=== PATIENT | female | born 1940 | race Caucasian/White ===

== ENCOUNTER 2018-10-25 08:06 | Inpatient (IN) | payer MEDICARE ==
[2018-10-25 09:23] LABS: #Lymphocytes 1.9 thou/uL (1.20-3.40); #Monocytes 0.6 thou/uL (0.11-0.59); #Neutrophils 6.2 thou/uL (1.40-6.50); %Basophils 0.2 % (0.0-1.0); %Eosinophils 0.4 % (0.0-10.0); %Lymphocytes 21.5 % (21.0-51.0); %Monocytes 6.6 % (0.0-10.0); %Neutrophils 71.3 % (42.0-75.0); ALT (SGPT) Less than 7 U/L (8-55); AST (SGOT) 11 U/L (5-34); Albumin 3.1 g/dL (3.4-4.8); Alkaline Phosphatase 134 U/L (40-150); Anion Gap 13 mmol/L (10-20); Anisocytosis SLIGHT = 6-15 cells (100X) (0-5/hpf); BUN (Urea Nitrogen) 34 mg/dL (9.8-20.1); Bilirubin, Total 0.3 mg/dL (0.2-1.2); Calc. Creatinine Clearance 0 mL/min (70-130); Calcium 8.2 mg/dL (7.8-10.44); Carbon Dioxide 18 mmol/L (23-31); Chloride 111 mmol/L (98-107); Estimated GFR-MDRD 39; Globulin 2.8 g/dL (2.4-3.5); Glucose 149 mg/dL (83-110); Hemoglobin 11.8 g/dL (12.0-16.0); MDiff Complete? YES; Mean Corpuscular HGB CONC 30.2 g/dL (32.0-36.0); Mean Corpuscular Hemoglobin 22.8 pg (27.0-31.0); Mean Corpuscular Volume 75.7 fL (78.0-98.0); Mean Platelet Volume 11.2 fL (7.4-10.4); Platelet Count 162 thou/uL (130-400); Potassium 4.3 mmol/L (3.5-5.1); Protein, Total 5.9 g/dL (6.0-8.3); Red Blood Cell (RBC) Count 5.16 mill/uL (4.20-5.40); Sodium 138 mmol/L (136-145); White Blood Cell (WBC) Count 8.7 thou/uL (4.8-10.8)
[2018-10-25 10:08] LABS: Acetaminophen Less than 6.0 mcg/mL (10.0-30.0); Alcohol Less than 10 mg/dL (Less than 10); Salicylate Less than 8.0 mg/dL (15.0-30.0)
[2018-10-25 11:01] LABS: Bilirubin Negative (Negative); Blood, Urine Moderate (Negative); Glucose, Urine (Dipstick) Negative (Negative); Leukocyte Large (Negative); Nitrite Negative (Negative); Protein, Urine (Dipstick) 30 mg/dL (Neg-Trace); Urobilinogen 0.2 mg/dL (0.2-1.0); pH, Urine 7.5 (5.0-9.0)
[2018-10-25 11:04] LABS: Clarity HAZY (Clear)
[2018-10-25 11:11] LABS: Bacteria/HPF 4+ HPF (None Seen); Hyaline Casts/LPF NONE SEEN LPF (0-3 Hyaline); RBC/HPF 0-3 HPF (0-3); Squamous Epithelial 0-3 HPF (0-3)
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
[2018-10-25] MEDS ORDERED: Dextrose 50% Abboject 50 ML SYRINGE SLOW IVP PRN (15:14)
[2018-10-25] MEDS ORDERED: Dextrose 5% in Water 1,000 ML IV PRN (15:14)
[2018-10-25 15:17] VITALS: BMI 29.4
[2018-10-25 16:16] LABS: PTT 31.3 SEC (22.9-36.1); Prothrombin Time 13.6 SEC (12.0-14.7)
[2018-10-25 16:25] LABS: Acetaminophen Less than 6.0 mcg/mL (10.0-30.0); Alcohol Less than 10 mg/dL (Less than 10); Salicylate Less than 8.0 mg/dL (15.0-30.0)
[2018-10-25] MEDS: Lactated Ringer's 1,000 ML IV SCH (17:05)
[2018-10-25] MEDS ORDERED: Acetaminophen 500 MG TAB PO PRN (17:52)
[2018-10-26] MEDS ORDERED: Metoprolol Tartrate 5 MG/5 ML VIAL IVP PRN (05:17)
[2018-10-26] MEDS ORDERED: Metoprolol Tartrate 25 MG TAB PO SCH (05:30)
[2018-10-26] MEDS: Lactated Ringer's 1,000 ML IV SCH ×2 (05:42→18:01)
--- NOTE | 2018-10-26 06:13 | PDOC.FM ---
- Subjective Subjective: Pt noted to be in afib <110 rate last night. Metoprolol started. Pt states she can usually control Afib with breathing slowly. We need medications. Have called pharmacy and have requested daughter bring them in. Otherwise, patient feeling much better today and denies CP, SOB. did visit and brought "several loose pills" for patient per nurse, but no known home meds. Diarrhea not present per patient. - Objective Vital Signs & Weight: Vital Signs (12 hours) Temp Pulse Resp BP Pulse Ox 10/26/18 04:27 98.4 F 124 H 18 129/84 100 10/26/18 00:00 98.2 F 92 18 127/78 97 10/25/18 20:00 97.6 F 86 16 136/83 96 Weight Weight 82.696 kg I&O: 10/24/18 10/25/18 10/26/18 06:59 06:59 06:59 Intake Total 117 Output Total 150 Balance -33 Result Diagrams: 10/25/18 08:53 10/26/18 06:21 Phys Exam - Physical Examination Constitutional: NAD HEENT: PERRLA, moist MMs Neck: no nodes, no JVD, supple Respiratory: no wheezing, no rales, no rhonchi Cardiovascular: no significant murmur (irregular rhythm), no rub Gastrointestinal: soft (obese), non-tender Musculoskeletal: no edema (b/l medial venous stasis ulcers. mild dependent edema ) Neurological: non-focal, normal sensation Psychiatric: normal affect, A&O x 3 Skin: no rash, normal turgor, cap refill <2 seconds Dx/Plan (1) Venous stasis ulcers Code(s): I83.009 - VARICOSE VEINS OF UNSP LOWER EXTREMITY W ULCER OF UNSP SITE; L97.909 - NON-PRS CHRONIC ULC UNSP PRT OF UNSP LOW LEG W UNSP SEVERITY Status : Acute (2) ZANE (acute kidney injury) Code(s): N17.9 - ACUTE KIDNEY FAILURE, UNSPECIFIED Status: Acute (3) Hypertension Code(s): I10 - ESSENTIAL (PRIMARY) HYPERTENSION Status: Acute (4) Hyperlipidemia Code(s): E78.5 - HYPERLIPIDEMIA, UNSPECIFIED Status: Acute (5) Paroxysmal atrial fibrillation Code(s): I48.0 - PAROXYSMAL ATRIAL FIBRILLATION Status: Acute (6) Diabetes mellitus Code(s): E11.9 - TYPE 2 DIABETES MELLITUS WITHOUT COMPLICATIONS Status: Acute (7) Congestive heart failure with left ventricular diastolic dysfunction, NYHA class 3 Code(s): I50.30 - UNSPECIFIED DIASTOLIC (CONGESTIVE) HEART FAILURE Status: Acute (8) History of benign brain tumor Code(s): Z86.011 - PERSONAL HISTORY OF BENIGN NEOPLASM OF THE BRAIN Status: Acute (9) Hypothyroidism Code(s): E03.9 - HYPOTHYROIDISM, UNSPECIFIED Status: Acute (10) Osteomyelitis Code(s): M86.9 - OSTEOMYELITIS, UNSPECIFIED Status: Acute (11) UTI (urinary tract infection) Status: Acute (12) History of resection of meningioma Code(s): Z98.890 - OTHER SPECIFIED POSTPROCEDURAL STATES Status: Acute (13) Ulcer, venous stasis Code(s): I83.009 - VARICOSE VEINS OF UNSP LOWER EXTREMITY W ULCER OF UNSP SITE; L97.909 - NON-PRS CHRONIC ULC UNSP PRT OF UNSP LOW LEG W UNSP SEVERITY Status : Acute (14) Atrial fibrillation Code(s): I48.91 - UNSPECIFIED ATRIAL FIBRILLATION Status: Acute (15) CHF (congestive heart failure) Code(s): I50.9 - HEART FAILURE, UNSPECIFIED Status: Acute - Plan Plan: 1. Diarrhea - Resolved. Cdiff and stool culture ordered. Maintain gentle hydration with IVF and order probiotic. VS have been stable. 2. ZANE on CKD- At baseline, Will gently hydrate and follow BMP. 3. Afib w/ RVR - Started on Lopressor 12.5 overnight. Unknown medication rec but will be available this AM. Will consider anticoagulant or restart if taking daily. 4. Complicated UTI - Will continue IV Cipro ordered in ED. Send culture. Uncertain history, but has reportedly been resistant to several abx, but cipro sensitive. 5. Hx/o depression - No SI or HI currently. 6. CHF - Pharmacy called for medication rec. Will also reach out to family in regards to her PMH. 7. CAD - Pharmacy called for medication rec 8. T2DM - Pharmacy called for medication rec. BG controlled 9 Chronic pain - Reportedly on Campus, but unsure of dosing. will hold as patient is not reporting any pain 10. Venous Stasis Ulcers - Wound care, bandage wound to prevent her picking area. DISPO: Now pending placement in 1-2d. Addendum - Attending - Attending Attestation Date/Time: 10/26/18 5261 I personally evaluated the patient and discussed the management with Dr. Katz I agree with the History, Examination, Assessment and Plan documented above with any addition or exceptions noted below. Medication received and reconciled. Note patient now in atrial fibrillation Query into ROCKET ASSEMBLY OPERATOR aware with Kathryn Aguiar confirms current home rx. Patient tolerating decontinuation of norco well. air operations manager to look into placement options.
[2018-10-26 06:58] LABS: ALT (SGPT) Less than 7 U/L (8-55); AST (SGOT) 12 U/L (5-34); Albumin 2.9 g/dL (3.4-4.8); Alkaline Phosphatase 125 U/L (40-150); Anion Gap 12 mmol/L (10-20); BUN (Urea Nitrogen) 27 mg/dL (9.8-20.1); Bilirubin, Total 0.4 mg/dL (0.2-1.2); Calc. Creatinine Clearance 60 mL/min (70-130); Calcium 8.3 mg/dL (7.8-10.44); Carbon Dioxide 17 mmol/L (23-31); Chloride 113 mmol/L (98-107); Estimated GFR-MDRD 55; Globulin 2.8 g/dL (2.4-3.5); Glucose 114 mg/dL (83-110); Potassium 4.2 mmol/L (3.5-5.1); Protein, Total 5.7 g/dL (6.0-8.3); Sodium 138 mmol/L (136-145)
[2018-10-26] MEDS ORDERED: Furosemide 80 MG TAB PO SCH (09:00)
[2018-10-26 10:31] LABS: Digoxin 0.97 ng/mL (0.8-2.0)
[2018-10-26] MEDS: Allopurinol 100 MG TAB PO SCH (10:31)
[2018-10-26] MEDS: Folic Acid 1 MG TAB PO SCH (10:31)
[2018-10-26] MEDS ORDERED: Digoxin 0.125 MG TAB PO SCH (15:30)
[2018-10-26] MEDS ORDERED: Atorvastatin Calcium 40 MG TAB PO SCH (21:00)
[2018-10-26] MEDS: Metoprolol Tartrate 25 MG TAB PO SCH (21:35)
[2018-10-26] MEDS: Apixaban 2.5 MG TAB PO SCH (21:36)
[2018-10-27] MEDS ORDERED: Ketorolac Tromethamine 30 MG/ML VIAL IVP PRN (00:03)
[2018-10-27] MEDS: Furosemide 80 MG TAB PO SCH ×2 (05:15→13:25)
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
[2018-10-27] MEDS ORDERED: HYDROcodone/Acetaminophen 7.5/325 mg Tablet PO PRN (05:55)
[2018-10-27] MEDS ORDERED: Levothyroxine Sodium 100 MCG TAB PO SCH (06:00)
[2018-10-27 07:23] LABS: ALT (SGPT) Less than 7 U/L (8-55); AST (SGOT) 10 U/L (5-34); Albumin 2.9 g/dL (3.4-4.8); Alkaline Phosphatase 122 U/L (40-150); Anion Gap 14 mmol/L (10-20); BUN (Urea Nitrogen) 27 mg/dL (9.8-20.1); Bilirubin, Total 0.3 mg/dL (0.2-1.2); Calc. Creatinine Clearance 56 mL/min (70-130); Calcium 8.2 mg/dL (7.8-10.44); Carbon Dioxide 17 mmol/L (23-31); Chloride 110 mmol/L (98-107); Estimated GFR-MDRD 51; Globulin 2.6 g/dL (2.4-3.5); Glucose 117 mg/dL (83-110); Potassium 3.9 mmol/L (3.5-5.1); Protein, Total 5.5 g/dL (6.0-8.3); Sodium 137 mmol/L (136-145)
[2018-10-27] MEDS: Lactated Ringer's 1,000 ML IV SCH (08:36)
[2018-10-27] MEDS: Metoprolol Tartrate 25 MG TAB PO SCH (08:37)
[2018-10-27] MEDS: Apixaban 2.5 MG TAB PO SCH (08:37)
[2018-10-27] MEDS: Allopurinol 100 MG TAB PO SCH (08:37)
[2018-10-27] MEDS: Folic Acid 1 MG TAB PO SCH (08:37)
[2018-10-27] MEDS ORDERED: Allopurinol 100 MG TAB PO SCH (09:00)
[2018-10-27] MEDS ORDERED: Gentamicin 20 MG/2 ML PF (Neonates) IVPB SCH (09:00)
[2018-10-27] MEDS ORDERED: Sotalol HCl 80 MG TAB PO SCH ×2 (09:00→21:00)
[2018-10-27] MEDS ORDERED: Digoxin 0.125 MG TAB PO SCH (09:00)
[2018-10-27] MEDS ORDERED: Gabapentin 300 MG CAP PO PRN (09:08)
--- NOTE | 2018-10-27 13:41 | PQF ---
TAIWO CAPONE BEENA BELCHER [id number] CLINICAL DOCUMENTATION IMPROVEMENT CLARIFICATION FORM: ICD-10 Updated PLEASE DO AN ADDENDUM TO THE PROGRESS NOTE WITH ANY DOCUMENTATION UPDATES OR ADDITIONS AND CARRY THROUGH TO DC SUMMARY. THANK YOU. DATE: 10/27/2018 ATTN : DR. Jerod PARADA Please exercise your independent, professional judgment in responding to the clarification form. Clinical indicators are provided on the bottom of this form for your review. Please check appropriate box(s): DIASTOLIC HEART FAILURE: ACUITY [ ] Acute [ ] Acute on Chronic [ ] Chronic [ ] Other diagnosis [ x ] Unable to determine In addition, please specify: Present on Admission (POA): [ ] Yes [ ] No [ x ] Unable to determine For continuity of documentation, please document condition throughout progress notes and discharge summary. Thank You. CLINICAL INDICATORS - SIGNS / SYMPTOMS / LABS H & P 10/25 (LORI) ASSESSMENT: 7). ACUTE DIASTOLIC CHF; PLAN: HFrEF, DAILY WEIGHTS, HH DIET, DOES NOT APPEAR VOLUME OVERLOADED, MONITOR FLUID STATUS PN 10/27 (KARMA) ASSESSMENT: 7) CHF CHRONIC, CONT HOME MEDICATION RISKS: History of HFrEF HX HTN TREATMENTS: TELE MONITORING PO DIURETIC ([facility] HOME DOSE, 10/25- PRESENT) THANK YOU! SARITA (This form is maintained as a part of the permanent medical record) 2014 [employer]. All Rights Reserved Sarita [email or web address] [phone] MTDD
[2018-10-27 17:08] VITALS: BP 137/67; TEMP 97.8
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
--- NOTE | 2018-10-28 09:28 | PQF ---
TAIWO CAPONE BEENA BELCHER [id number] CLINICAL DOCUMENTATION IMPROVEMENT CLARIFICATION FORM: ICD-10 Updated PLEASE DO AN ADDENDUM TO THE PROGRESS NOTE WITH ANY DOCUMENTATION UPDATES OR ADDITIONS AND CARRY THROUGH TO DC SUMMARY. THANK YOU. DATE: 10/27/2018 ATTN : DR. Jerod PARADA Please exercise your independent, professional judgment in responding to the clarification form. Clinical indicators are provided on the bottom of this form for your review. Please check appropriate box(s): DIASTOLIC HEART FAILURE ACUITY [ ] Acute [ ] Acute on Chronic [ x ] Chronic [ ] Other diagnosis [ ] Unable to determine In addition, please specify: Present on Admission (POA): [ x ] Yes [ ] No [ ] Unable to determine For continuity of documentation, please document condition throughout progress notes and discharge summary. Thank You. CLINICAL INDICATORS - SIGNS / SYMPTOMS / LABS H & P 10/25 (LORI) ASSESSMENT: 7). ACUTE DIASTOLIC CHF; PLAN: HFpEF, DAILY WEIGHTS, HH DIET, DOES NOT APPEAR VOLUME OVERLOADED, MONITOR FLUID STATUS PN 10/27 (KARMA) ASSESSMENT: 7) CHF CHRONIC, CONT HOME MEDICATION RISKS: HISTORY HFpEF HX HTN TREATMENTS: TELE MONITORING PO DIURETIC ([facility] HOME DOSE, 10/25- PRESENT) THANK YOU! Sarita (This form is maintained as a part of the permanent medical record) 2014 [employer]. All Rights Reserved Sarita [email or web address] [phone] MTDD
--- NOTE | 2018-10-28 12:21 | DIS ---
DATE OF ADMISSION: 10/25/2018 DATE OF DISCHARGE: 10/27/2018 RESIDENT: Rufina Mcclellan MD ADMITTING ATTENDING: Isiah Olguin MD DISCHARGE ATTENDING: Dr. Petros Darling. CONSULT: None. PROCEDURES: None. PRIMARY DIAGNOSIS: Complicated urinary tract infection. SECONDARY DIAGNOSES: 1. Mild dehydratino 2/2 diarrhea, resolved. 2. Acute kidney injury on chronic kidney disease, resolved. 3. Atrial fibrillation with rapid ventricular response. 4. History of depression. 5. Congestive heart failure. 6. Coronary artery disease. 7. Type 2 diabetes mellitus. 8. Chronic pain. 9. Venous stasis ulcers in bilateral lower extremities. DISCHARGE MEDICATIONS: 1. Allopurinol 100 mg p.o. daily. 2. Apixaban 2.5 mg p.o. b.i.d. 3. Atorvastatin 80 mg p.o. daily. 4. Digoxin 0.125 mg tablet p.o. daily. 5. Folic acid 1 mg p.o. daily. 6. Furosemide 80 mg p.o. b.i.d. 7. Levothyroxine 200 mcg p.o. daily. 8. Pantoprazole 40 mg p.o. daily. 9. Phenytoin 200 mg p.o. at bedtime. 10. Diazepam 2 mg p.o. q.4 hours p.r.n. for vertigo. 11. Diphenoxylate HCL/atropine 1 tablet p.o. q.2 hours p.r.n. for diarrhea. 12. Estrogen 0.3 mg p.o. daily. 13. Hydrocodone/acetaminophen 7.5/325 one p.o. q.i.d. 14. Promethazine 25 mg p.o. q.4 hours. 15. Sotalol 40 mg p.o. b.i.d. 16. Sulindac 150 mg p.o. daily. 17. Tolterodine 4 mg p.o. daily. 18. Zolpidem 10 mg p.o. at bedtime. DISCONTINUE MEDICATIONS: Metoprolol. HISTORY OF PRESENT ILLNESS/HOSPITAL COURSE: This is a 77-year-old female, who presented to the ED by EMS for diarrhea. History was obtained from the daughter with the phone. The patient was living at [facility] due to physical deconditioning, she is bed-bound. She is highly dependent on Torreon and takes a large amount daily, she has a prescription as well as taking her 's. The patient is opiate dependent. Reports the patient had a bottle with 300 Torreon 3 weeks ago and yesterday, the bottle had what she estimated to be 30 tablets. Three weeks ago, she was sent to [facility] for threatened overdose and [facility] said she did not meet criteria at that point for inpatient treatment. The patient was discharged home with despite daughter worrying about this being safe placement for the patient due to her inability to care for self. For the past 2 weeks, she has been basically bed bound and was found covered in her own feces. Daughter reports diarrhea is new. Physical deconditioning is unprogressive over the last year. One year ago, she had a fall, in which she lost much of her mobility. She is reportedly noncompliant with medications. She also reports that prior to being bedbound, the patient was using a rolling chair to transfer from bathroom to bed. She refused to use the wheelchair. Daughter hired Home Health multiple times, which she fired. Daughter also hired [employer] for them and paid people to cook meals but they refused and will only eat fast foods. The daughter has also called APS and has artist and repertoire manager, Marquita Ramírez, in order for her to enter the house, she would have to have police let her in. The patient's has expressed that he cannot care for the patient and would likely have a long term placement. Her has been on hospice in the past and unable to care for her, but he left [place] and therefore did not qualify for hospice and reportedly not allowed to be driving, but has been driving her back and forth to appointments. Diarrhea resolved during her stay here. C. difficile and stool cultures were negative. She was rehydrated with gentle IV fluid and started on probiotics. For complicated UTI, she grew out Proteus mirabilis in urine. It was resistant to Cipro. She was sensitive to gentamicin. The patient reported throat swelling and rash with penicillin and able to give cephalosporins, to which she may have cross re-activity. The patient was given one dose of 100 mg of gentamicin over 30 minutes to resolve her UTI. For atrial fibrillation with RVR, the patient's metoprolol was stopped and will continue on sotalol, which seems to be patient's most recently prescribed medication. For venous stasis ulcers, wound care was ordered. The patient had bandaged her wound to prevent her from picking her skin. DISPOSITION: Stable. DISCHARGE INSTRUCTIONS: 1. Location: Home. 2. Diet: Heart healthy, consistent carbohydrate. 3. Activity: As tolerated. 4. Followup: With PCP, Dr. Verma in 1 week. Job ID: [id number] MTDD
== END 2018-10-27 18:45 | disposition home or self-care (01) | DRG 683 ==
LOC: ERS 08:06 → T4-B 15:05 → 2NO 10-26 17:35
PROVIDERS: ADMIT Family Medicine; ATTEND Family Medicine
DX: N17.9 Acute kidney failure, unspecified (principal); N39.0 Urinary tract infection, site not specified; L97.909 Non-pressure chronic ulcer of unspecified part of unspecified lower leg with unspecified severity; F11.23 Opioid dependence with withdrawal; I13.0 Hypertensive heart and chronic kidney disease with heart failure and stage 1 through stage 4 chronic kidney disease, or unspecified chronic kidney disease; I50.20 Unspecified systolic (congestive) heart failure; I48.91 Unspecified atrial fibrillation; F32.9 Major depressive disorder, single episode, unspecified; G89.29 Other chronic pain; E78.5 Hyperlipidemia, unspecified; B96.4 Proteus (mirabilis) (morganii) as the cause of diseases classified elsewhere; I48.0 Paroxysmal atrial fibrillation; E11.22 Type 2 diabetes mellitus with diabetic chronic kidney disease; E03.9 Hypothyroidism, unspecified; N18.9 Chronic kidney disease, unspecified; R19.7 Diarrhea, unspecified; I87.2 Venous insufficiency (chronic) (peripheral); I25.10 Atherosclerotic heart disease of native coronary artery without angina pectoris; Z79.899 Other long term (current) drug therapy; Z86.011 Personal history of benign neoplasm of the brain; Z88.1 Allergy status to other antibiotic agents; Z74.01 Bed confinement status; Z88.2 Allergy status to sulfonamides; Z88.5 Allergy status to narcotic agent; Z91.041 Radiographic dye allergy status; Z90.49 Acquired absence of other specified parts of digestive tract; Z90.710 Acquired absence of both cervix and uterus; Z98.890 Other specified postprocedural states
CPT/HCPCS: 36415; 36416; 51701; 80053; 80162; 80307; 81003; 81015; 83036; 83735; 84484; 85025; 85610; 85730; 87045; 87046; 87077; 87086; 87186; 87324; 87449; 87899; 93005; 93010; 96360; 96365; J0744; J1580; J1885; J7050

== ENCOUNTER 2018-10-28 23:17 | Observation (INO) | payer MEDICARE ==
[2018-10-28 23:57] LABS: Hemoglobin 11.1 g/dL (12.0-16.0); Mean Corpuscular HGB CONC 29.8 g/dL (32.0-36.0); Mean Corpuscular Hemoglobin 22.9 pg (27.0-31.0); Mean Corpuscular Volume 76.9 fL (78.0-98.0); Mean Platelet Volume 11.1 fL (7.4-10.4); Platelet Count 133 thou/uL (130-400); RBC Distribution Width 25.5 % (11.5-14.5); Red Blood Cell (RBC) Count 4.85 mill/uL (4.20-5.40); White Blood Cell (WBC) Count 7.6 thou/uL (4.8-10.8)
[2018-10-29 00:10] LABS: #Eosinphils 0.1 thou/uL (0.0-0.7); #Lymphocytes 2.3 thou/uL (1.20-3.40); #Monocytes 0.5 thou/uL (0.11-0.59); #Neutrophils 4.7 thou/uL (1.40-6.50); %Basophils 0.2 % (0.0-1.0); %Eosinophils 0.8 % (0.0-10.0); %Lymphocytes 30.3 % (21.0-51.0); %Monocytes 6.1 % (0.0-10.0); %Neutrophils 62.6 % (42.0-75.0); Anisocytosis SLIGHT = 6-15 cells (100X) (0-5/hpf); MDiff Complete? YES; Microcytosis SLIGHT = 6-15 cells (100X) (0-5/hpf)
[2018-10-29 00:20] LABS: ALT (SGPT) Less than 7 U/L (8-55); AST (SGOT) 11 U/L (5-34); Albumin 2.9 g/dL (3.4-4.8); Alkaline Phosphatase 124 U/L (40-150); Anion Gap 14 mmol/L (10-20); BUN (Urea Nitrogen) 24 mg/dL (9.8-20.1); Bilirubin, Total 0.3 mg/dL (0.2-1.2); CK (CPK) 25 U/L (29-168); Calc. Creatinine Clearance 0 mL/min (70-130); Calcium 7.8 mg/dL (7.8-10.44); Carbon Dioxide 18 mmol/L (23-31); Chloride 111 mmol/L (98-107); Estimated GFR-MDRD 53; Globulin 2.6 g/dL (2.4-3.5); Glucose 125 mg/dL (83-110); Potassium 3.8 mmol/L (3.5-5.1); Protein, Total 5.5 g/dL (6.0-8.3); Sodium 139 mmol/L (136-145)
[2018-10-29 00:27] LABS: Bilirubin Negative (Negative); Blood, Urine Moderate (Negative); Clarity TURBID (Clear); Glucose, Urine (Dipstick) Negative (Negative); Leukocyte Large (Negative); Nitrite Negative (Negative); Protein, Urine (Dipstick) 30 mg/dL (Neg-Trace); Specific Gravity, Urine 1.019 (1.002-1.036); Urobilinogen 0.2 mg/dL (0.2-1.0); pH, Urine 5.5 (5.0-9.0)
[2018-10-29 00:30] LABS: Bacteria/HPF Rare-Few HPF (None Seen); Pathc Cast-AUWi Flag 0.82 (0-2.49)
[2018-10-29 00:31] LABS: Yeast-AUWi Flag 38.6 (0-25.0)
[2018-10-29 00:41] LABS: Renal Epithelial 0-3 HPF (0-3); Transitional Epithelial 0-3 HPF (0-3)
[2018-10-29 00:42] LABS: Yeast-All Forms None Seen HPF (None Seen)
[2018-10-29] MEDS ORDERED: Dextrose 5% in Water 1,000 ML IV PRN (03:31)
[2018-10-29] MEDS ORDERED: HumaLOG 300 UNITS/3 ML VIAL SC PRN ×2 (03:31)
[2018-10-29] MEDS ORDERED: HYDROcodone/Acetaminophen 7.5/325 mg Tablet PO PRN (03:31)
[2018-10-29] MEDS ORDERED: Dextrose 50% Abboject 50 ML SYRINGE SLOW IVP PRN (03:31)
[2018-10-29] MEDS ORDERED: Promethazine 25 MG TAB PO PRN (03:45)
[2018-10-29] MEDS ORDERED: Diphenoxylate HCl/Atropine Tablet PO PRN (03:45)
[2018-10-29] MEDS ORDERED: Diazepam 2 MG TAB PO PRN (03:45)
[2018-10-29] MEDS ORDERED: Lactated Ringer's 500 ML IV SCH (04:00)
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
[2018-10-29] MEDS ORDERED: Levothyroxine Sodium 100 MCG TAB PO SCH (06:00)
[2018-10-29] MEDS: Furosemide 80 MG TAB PO SCH ×2 (08:17→14:50)
[2018-10-29] MEDS ORDERED: Apixaban 2.5 MG TAB PO SCH (09:00)
[2018-10-29] MEDS ORDERED: Digoxin 0.125 MG TAB PO SCH (09:00)
[2018-10-29] MEDS ORDERED: Trospium 20 MG TAB PO SCH (09:00)
[2018-10-29] MEDS ORDERED: Folic Acid 1 MG TAB PO SCH (09:00)
[2018-10-29] MEDS ORDERED: Allopurinol 100 MG TAB PO SCH (09:00)
[2018-10-29] MEDS ORDERED: Estrogens, Conjugated 0.3 MG TAB PO SCH (09:00)
[2018-10-29] MEDS ORDERED: Sotalol HCl 80 MG TAB PO SCH (09:00)
[2018-10-29] MEDS ORDERED: Atorvastatin Calcium 40 MG TAB PO SCH (09:00)
--- NOTE | 2018-10-29 13:49 | PDOC.EVN ---
Event Note - Event Note Event Note: Spoke with child support case officer several times today regarding options for patient. She states she has sent info to [facility], but waiting to hear from them and says pt's daughter will need to f/u with [facility]. Pt states she wishes to go home instead of wait for additional placement. I told her she did not have a medical indication to require hospitalization and she understands. We have offered to allows her to stay until placement, but she wishes to go home against our and PT recommendations. Advised pt fo f/u with PCP for additional placement issues and to f/u for recent medical hospitalization.
[2018-10-29 14:50] VITALS: BMI 30.3
[2018-10-29 15:45] VITALS: BP 155/71; TEMP 97.4
[2018-10-29] MEDS ORDERED: Zolpidem Tartrate 5 MG TAB PO SCH (21:00)
--- NOTE | 2018-11-01 17:25 | DIS ---
DATE OF ADMISSION: 10/28/2018 DATE OF DISCHARGE: 10/29/2018 RESIDENT: Rufina Mcclellan MD ADMITTING ATTENDING: Tony Reynolds MD. CONSULT: None. PROCEDURES: None. PRIMARY DIAGNOSES: 1. Mild dehydration. 2. Severe physical deconditioning. SECONDARY DIAGNOSES: 1. Diabetes mellitus type 2. 2. Chronic venous stasis with pressure ulcers. 3. Chronic pain. 4. Paroxysmal atrial fibrillation. 5. Heart failure with reduced ejection fraction. 6. Hypertension. 7. Hyperlipidemia. 8. Chronic kidney disease, stage 3. 9. Hypothyroidism. DISCHARGE MEDICATIONS: 1. Sotalol 40 mg p.o. b.i.d. 2. Baltic 7.5/325 one tablet four times daily as needed for [id number] pain. 3. Sulindac 150 mg p.o. daily. 4. Phenergan 25 mg p.o. q.4 hours as needed for nausea or vomiting. 5. Estrogen 0.3 mg oral daily. 6. Digoxin 0.125 mg p.o. daily. 7. Pantoprazole 40 mg p.o. daily. 8. Diphenoxylate hydrochloride/atropine 2.5/0.025 one tablet oral q.2 hours as needed for diarrhea or loose stools. 9. Eliquis 2.5 mg p.o. b.i.d. 10. Folvite 1 mg p.o. daily. 11. Phenytoin 200 mg p.o. at bedtime. 12. Tolterodine 4 mg p.o. daily. 13. Valium 2 mg p.o. q.4 hours as needed for vertigo. 14. Furosemide 80 mg p.o. b.i.d. 15. Atorvastatin 80 mg p.o. daily. 16. Allopurinol 100 mg p.o. daily. 17. Ambien 10 mg p.o. at bedtime. 18. Levothyroxine 200 mcg p.o. daily. DISCONTINUED MEDICATIONS: None. HOSPITAL COURSE: This is a 77-year-old female with past medical history significant for severe physical deconditioning, heart failure with reduced ejection fraction , chronic atrial fibrillation, and hypothyroidism who presented to the ED via EMS calling them to come in and assist clean her up after having a bowel movement on herself. The patient reported that she tried her best to avoid calling EMS, but she and her were unable to clean up the mess, and Home Health that already come by earlier in the day. Per the ED physician, EMS opted to bring the patient in for admission as they noted the house to be extremely dirty and felt unsafe to leave the patient in that home environment. The patient stated she felt well. Denies any symptoms such as fevers, chills, shortness of breath, chest pain, diarrhea, constipation, or abdominal pain. Her only complaint is bilateral foot pain, which she states has gotten progressively worse over the last several months. She is now bed-bound and unable to walk. Of note, the patient was discharged to home on 10/28/2018 after being admitted for complicated UTI. She was ultimately discharged home after seen to be placed at a care home or SNF facility despite being recommended by all medical team who evaluated her in the hospital. She initially refused to be admitted tonight, but then was agreeable after was brought into the ED for a fall at home shortly after her presentation to the ED. Also per the patient and chart review, her functional status significantly declined after a fall that occurred per the patient several months ago, but per the chart review that fall took place one year ago. She states she is unable to care for herself and requires assistance with all activities of daily living. The patient was admitted for dehydration. She was given fluid resuscitation and monitor closely secondary to history of CHF. The patient was given a consult with the Case Management and information was sent for [facility]. The patient's daughter states she will help follow up with [facility]. The patient stated she wanted to go home instead of waiting for additional placement at the hospital. The patient decided that she did not want to stay and so she left against the medical teams recommendations and against physical therapy recommendations. We advised the patient to follow up with her PCP for additional placement as well as for her recent medical hospitalization. DISPOSITION: Guarded. DISCHARGE INSTRUCTIONS: 1. Location: home. 2. Diet: consistent carbohydrate, heart healthy. 3. Activity: as tolerated. 4. Follow up with PCP and please follow up with [facility] to arrange for [facility] care. Job ID: [id number] MTDD
--- NOTE | 2018-11-01 17:34 | EKG ---
Test Reason : Blood Pressure : / mmHG Vent. Rate : 101 BPM Atrial Rate : 066 BPM P-R Int : 000 ms QRS Dur : 130 ms QT Int : 386 ms P-R-T Axes : 000 -31 128 degrees QTc Int : 500 ms Atrial fibrillation with rapid ventricular response Left axis deviation Left bundle branch block Abnormal ECG Confirmed by ELOY MCNULTY, UDAY Hennessy ([id number]), news videotape editor ISAAC BHATTI ([id number]) on 11/01/2018 5:34:17 PM Referred By: ELOY Confirmed By:UDAY LYONS MD
== END 2018-10-29 17:15 | disposition home or self-care (01) ==
LOC: ERS 23:17 → ERHOLD 23:40 → INTOOBSV 23:40 → 2NO 10-29 06:07
PROVIDERS: ADMIT Emergency Medicine; ATTEND Emergency Medicine
DX: E86.0 Dehydration (principal); I13.0 Hypertensive heart and chronic kidney disease with heart failure and stage 1 through stage 4 chronic kidney disease, or unspecified chronic kidney disease; E11.22 Type 2 diabetes mellitus with diabetic chronic kidney disease; N18.3 Chronic kidney disease, stage 3 (moderate); I50.22 Chronic systolic (congestive) heart failure; I48.0 Paroxysmal atrial fibrillation; E78.5 Hyperlipidemia, unspecified; E03.9 Hypothyroidism, unspecified; I48.2 Chronic atrial fibrillation; F32.9 Major depressive disorder, single episode, unspecified; I25.10 Atherosclerotic heart disease of native coronary artery without angina pectoris; I83.009 Varicose veins of unspecified lower extremity with ulcer of unspecified site; E11.622 Type 2 diabetes mellitus with other skin ulcer; L97.929 Non-pressure chronic ulcer of unspecified part of left lower leg with unspecified severity; L97.919 Non-pressure chronic ulcer of unspecified part of right lower leg with unspecified severity; E11.10 Type 2 diabetes mellitus with ketoacidosis without coma; E87.2 Acidosis; N39.0 Urinary tract infection, site not specified; Z79.01 Long term (current) use of anticoagulants; Z79.899 Other long term (current) drug therapy; Z88.0 Allergy status to penicillin; Z88.1 Allergy status to other antibiotic agents; Z88.2 Allergy status to sulfonamides; Z88.5 Allergy status to narcotic agent; Z88.8 Allergy status to other drugs, medicaments and biological substances; Z91.041 Radiographic dye allergy status; Z98.890 Other specified postprocedural states; Z91.19 Patient's noncompliance with other medical treatment and regimen
CPT/HCPCS: 80053; 82550; 82962; 85025; 87040; 87077; 87086; 87186; 93005; 97139 ×3; 97530; 99284; G0378 ×2; 36415; 36416; 81003; 81015; A4353